=== PATIENT | female | born 2000 | race Caucasian/White ===

== ENCOUNTER 2023-11-09 09:52 | Emergency (ER) | payer MEDICAID, SELFPAY ==
[2023-11-09] MEDS ORDERED: Ibuprofen 800 MG TAB ONE (10:26)
== END 2023-11-09 10:35 | disposition home or self-care (01) ==
LOC: NAV ERS 09:52
DX: M65.4 Radial styloid tenosynovitis [de Quervain] (principal); F17.290 Nicotine dependence, other tobacco product, uncomplicated
CPT/HCPCS: 99283